=== PATIENT | male | born 1990 | race African-American/Black ===

== ENCOUNTER 2019-11-05 23:01 | Emergency (ER) | payer SELFPAY ==
[~2019-11-05] VITALS: Ht 180.3 cm; Wt 70.5 kg
--- NOTE | 2019-11-05 23:28 | PHYS DOC ---
Past Medical History Past Medical History: No Pertinent History Past Surgical History: No Surgical History Smoking Status: Current Every Day Smoker Alcohol Use: Rarely Drug Use: Marijuana General Adult EDM: Chief Complaint: SHORTNESS OF BREATH HPI: HPI: Patient is a 29 year old male who presents for evaluation of left-sided chest pain and shortness of air. Patient has been having progressive symptoms over the past 3 days. Patient denies any cough or congestion. Symptoms worse with taking deep breaths and worse when lying on the left side. Patient denies any known exposure to COVID or any person with that condition. Patient vital signs are otherwise stable. Patient is not toxic appearing Review of Systems: Review of Systems: Constitutional: Denies fever or chills. [] Eyes: Denies change in visual acuity. [] HENT: Denies nasal congestion or sore throat. [] Respiratory: Denies cough but has shortness of breath. [] Cardiovascular: has chest pain but no edema. [] GI: Denies abdominal pain, nausea, vomiting, bloody stools or diarrhea. [] : Denies dysuria. [] Musculoskeletal: Denies back pain or joint pain. [] Integument: Denies rash. [] Neurologic: Denies headache, focal weakness or sensory changes. [] Endocrine: Denies polyuria or polydipsia. [] Lymphatic: Denies swollen glands. [] Psychiatric: Denies depression or anxiety. [] Heart Score: Risk Factors: Risk Factors: DM, Current or recent (<one month) smoker, HTN, HLP, family history of CAD, obesity. Risk Scores: Score 0 - 3: 2.5% MACE over next 6 weeks - Discharge Home Score 4 - 6: 20.3% MACE over next 6 weeks - Admit for Clinical Observation Score 7 - 10: 72.7% MACE over next 6 weeks - Early Invasive Strategies Physical Exam: PE: Constitutional: Well developed, well nourished, mild acute distress, non-toxic appearance. [] HENT: Normocephalic, atraumatic, bilateral external ears normal, oropharynx mois t, no oral exudates, nose normal. [] Eyes: PERRL, EOMI, conjunctiva normal, no discharge. [] Neck: Normal range of motion, no tenderness, supple, no stridor. [] Cardiovascular:Heart rate regular rhythm, no murmur [] Lungs & Thorax: Bilateral breath sounds clear to auscultation, tender left chest wall [] Abdomen: Bowel sounds normal, soft, no tenderness, no masses, no pulsatile masses. [] Skin: Warm, dry, no erythema, no rash. [] Back: No tenderness, no CVA tenderness. [] Extremities: No tenderness, no cyanosis, ROM intact, no edema. [] Neurologic: Alert and oriented X 3, normal motor function, normal sensory function, no focal deficits noted. [] Psychologic: Affect normal, judgement normal, mood normal. [] Current Patient Data: Labs: Laboratory Tests Test 11/05/19 23:45 White Blood Count 6.9 x10^3/uL Red Blood Count 4.30 x10^6/uL Hemoglobin 14.1 g/dL Hematocrit 40.1 % Mean Corpuscular Volume 93 fL Mean Corpuscular Hemoglobin 33 pg Mean Corpuscular Hemoglobin Concent 35 g/dL Red Cell Distribution Width 12.4 % Platelet Count 275 x10^3/uL Neutrophils (%) (Auto) 66 % Lymphocytes (%) (Auto) 25 % Monocytes (%) (Auto) 6 % Eosinophils (%) (Auto) 3 % Basophils (%) (Auto) 1 % Neutrophils # (Auto) 4.5 x10^3/uL Lymphocytes # (Auto) 1.7 x10^3/uL Monocytes # (Auto) 0.4 x10^3/uL Eosinophils # (Auto) 0.2 x10^3/uL Basophils # (Auto) 0.0 x10^3/uL D-Dimer (Geraldine) 5.10 ug/mlFEU Sodium Level 139 mmol/L Potassium Level 3.8 mmol/L Chloride Level 101 mmol/L Carbon Dioxide Level 29 mmol/L Anion Gap 9 Blood Urea Nitrogen 8 mg/dL Creatinine 0.9 mg/dL Estimated GFR (Cockcroft-Gault) 120.7 BUN/Creatinine Ratio 9 Glucose Level 105 mg/dL Calcium Level 7.9 mg/dL Total Bilirubin 0.4 mg/dL Aspartate Amino Transf (AST/SGOT) 16 U/L Alanine Aminotransferase (ALT/SGPT) 15 U/L Alkaline Phosphatase 103 U/L Troponin I Quantitative < 0.017 ng/mL Total Protein 7.1 g/dL Albumin 3.0 g/dL Albumin/Globulin Ratio 0.7 Lipase 82 U/L Current Medications Medications (Trade) Dose Ordered Sig/Selena Route PRN Reason Start Time Stop Time Status Last Admin Dose Admin Sodium Chloride 1,000 ml @ 100 mls/hr Q10H IV 11/05/19 23:29 11/06/19 09:28 UNV 11/05/19 23:57 EKG: EKG: EKG showed normal sinus rhythm rate 85, nonspecific ST segment changes, incomplete right bundle branch block, left ventricular hypertrophy, not STEMI [] Radiology/Procedures: Radiology/Procedures: [facility] [address] [place] [address] IMAGING REPORT Signed PATIENT: JAYDA MENJIVAR PACCOUNT: [id number] : 1990 LOCATION: ER AGE: 29 SEX: M EXAM STATUS: REG ER ORD. PHYSICIAN: ALFRED HESS DO REASON: chest pain PROCEDURE: PORTABLE CHEST 1V AP portable chest radiograph 11/05/2019 Clinical History: Chest pain. An AP erect portable digital radiograph of the chest was obtained. No previous studies are available for comparison. The cardiac and mediastinal silhouettes are within normal limits in size and configuration. No acute pulmonary infiltrate is seen. No pneumothorax or definite pleural effusion is noted. Very mild S-shaped curvature of the thoracolumbar spine is seen. IMPRESSION: No acute abnormality is seen. Electronically signed by: Hubert Grullon MD (11/06/2019 12:21 AM) [id number] DICTATED and SIGNED BY: HUBERT GRULLON MD DATE: 11/06/19 0021 [] Impression: [facility] [address] [place], [place] [id number] IMAGING REPORT Signed PATIENT: JAYDA MENJIVAR PACCOUNT: [id number] : 1990 LOCATION: ER AGE: 29 SEX: M EXAM STATUS: REG ER ORD. PHYSICIAN: ALFRED HESS DO REASON: chest pain PROCEDURE: CT ANGIOGRAPHY CHEST CTA scan of the Chest with Contrast (Pulmonary Embolism protocol) 11/06/2019 Clinical History: Chest pain Technique: After the intravenous administration of 100 cc of Omnipaque 350, contiguous, 0.625 mm axial sections were obtained through the chest. 2 mm axial and 3D MIP coronal and sagittal reconstructed images were obtained. One or more of the following individualized dose reduction techniques were utilized for this study: 1. Automated exposure control. 2. Adjustment of the mA and/or kV according to patient size. 3. Use of iterative reconstruction technique. Findings: No filling defect is seen within the major branches of either pulmonary artery. There is no CT evidence of pulmonary embolism. The thoracic aorta tapers normally. The heart is borderline enlarged. There are very small bilateral pleural effusions, left greater than right. Dependent segmental atelectasis is seen involving both lower lobes. No area of consolidation is seen. No pneumothorax is noted. Impression: There is no CT evidence of pulmonary embolism. Electronically signed by: Hubert Grullon MD (11/06/2019 2:03 AM) [id number] DICTATED and SIGNED BY: HUBERT GRULLON MD DATE: 11/06/19 0203 Course & Med Decision Making: Course & Med Decision Making Pertinent Labs and Imaging studies reviewed. (See chart for details) [] Dragon Disclaimer: Dragon Disclaimer: This electronic medical record was generated, in whole or in part, using a voice recognition dictation system. 0010 patient refused the COVID nasal swab, states he did not want that swab of his nose. He was advised that refusing the swab could result in failure to diagnose an emergency condition such as COVID-19. He will be advised to go home and quarantine for the next 14 days Departure Departure Impression: Primary Impression: Left-sided chest wall pain Disposition: HOME, SELF-CARE Condition: STABLE Referrals: ALANNA ROSS MD Patient Instructions: Costochondritis, [id number] Additional Instructions: Take medication as directed, we could not exclude COVID as being the cause of your pain You have been tested for or diagnosed with COVID-19. It is an in fection caused by a new type of coronavirus. COVID-19 will cause cold-like or mild flu symptoms in most. It can cause more severe symptoms like problems breathing in some. There is no treatment for COVID-19. The body will clear the infection over time. Self-care will help to ease discomfort. Steps to Take: Self-Care Rest as needed. Healthy habits may help you feel better. Steps include: Choose healthy foods including fruits and vegetables. Drink water throughout the day. Get plenty of sleep each night. If you smoke, try to quit. It may ease breathing. Avoid alcohol. Keep Others Healthy The virus can spread to others. Droplets are released every time you sneeze or cough. The droplets can get into the mouth, nose, or eyes of people near you and lead to infection. To lower the chances of spreading COVID-19 to others: Stay at home until your doctor has said it is safe to leave. If you tested positive this will mean staying isolated until both of the following are true: At least 7 days have passed since the start of illness. You are free of fever for at least 72 hours without the use of medicine. During this time: - Avoid public areas, events, or transportation. Do not return to work or school until your doctor has said it is safe to do so. - Call ahead if you need to go to a medical center. Let them know you may have COVID-19. It will help them guide you where to go. They may also ask you to wear a facemask when you come to the office. - If you call for emergency medical services, let them know you may have COVID- 19. While at home: - Try to avoid close contact with others. Stay about 6 feet away. - If possible, spend most of your time in a separate room from others. - Use a face mask if you will be in close contact with others such as sharing a room or vehicle. - Have someone wipe down common surfaces in the home. Use household life support technician every day on areas like doorknobs, counters, or sinks. - Cough or sneeze into a tissue. Throw the tissue away right after use. If a tissue is not available, cough or sneeze into your elbow. - Wash your hands often. Wash them after sneezing or coughing. Use soap and water and wash for at least 20 seconds. Alcohol based hand truck car and bus cleaner can be used if soap and water is not available. - Do not prepare food for others. Avoid sharing personal items like forks, spoons, or toothbrushes. - Avoid close contact with pets while you are sick. There is no evidence of the virus passing to pets. This is a safety step until more is known about this virus. Isolation can be frustrating. Social interaction can help. Keep in touch with friends and family through phone and tech options. You can still interact with others in your home, just keep a safe distance of about 6 feet. Follow-up: Your doctors office will check in with you to see if there are any changes in your health. You may be asked to keep track of symptoms to share with them. They will also let you know when you are clear to be in public again. Problems to Look Out For: Contact your doctor if your recovery is not going as you expect. Get emergency care if you have problems such as: - Trouble breathing - Nonstop chest pain or pressure - Changes in awareness, confusion, or problems waking - Lips or face have bluish color - Worsening of symptoms If you think you have an emergency, call for emergency medical services right away. As taken from [email or web address] since the swab was refused. We will give you COVID follow-up instructions just in case Scripts Methylprednisolone (MEDROL) 4 Mg Tab.ds.pk 1 PKG PO UD for inflammation, #1 PKG Prov: ALFRED HESS DO 11/06/19 Justicifation of Admission Dx: Justifications for Admission: Justification of Admission Dx: N/A ALFRED HESS DO Nov 05, 2019 23:28
[2019-11-05] MEDS ORDERED: IV NORMAL SALINE 1000ML BAG 1,000 ML IV SCH (23:29)
[2019-11-06] LABS: BASO % 1 % (0-3); EOS # 0.2 x10^3/uL (0.0-0.7); EOS % 3 % (0-3); HEMATOCRIT 40.1 % (39.0-53.0); HEMOGLOBIN 14.1 g/dL (13.0-17.5); LYMPH # 1.7 x10^3/uL (1.0-4.8); LYMPH % 25 % (24-48); MEAN CORPUSCULAR HEMOGLOBIN 33 pg (25-35); MEAN CORPUSCULAR HGB CONC 35 g/dL (31-37); MEAN CORPUSCULAR VOLUME 93 fL (79-100); MONO # 0.4 x10^3/uL (0.0-1.1); MONO % 6 % (0-9); NEUT # 4.5 x10^3/uL (1.8-7.7); NEUT % 66 % (31-73); PLATELET COUNT 275 x10^3/uL (140-400); RED CELL DISTRIBUTION WIDTH 12.4 % (11.5-14.5); WHITE BLOOD COUNT 6.9 x10^3/uL (4.0-11.0)
[2019-11-06 00:07] LABS: CALCIUM 7.9 mg/dL (8.5-10.1); CREATININE 0.9 mg/dL (0.7-1.3); GFR 120.7; POTASSIUM 3.8 mmol/L (3.5-5.1)
[2019-11-06 00:15] LABS: ALBUMIN/GLOBULIN RATIO 0.7 (1.0-1.7); TOTAL BILIRUBIN 0.4 mg/dL (0.2-1.0); TOTAL PROTEIN 7.1 g/dL (6.4-8.2)
--- NOTE | 2019-11-06 00:25 | RAD ---
AP portable chest radiograph 11/05/2019 Clinical History: Chest pain. An AP erect portable digital radiograph of the chest was obtained. No previous studies are available for comparison. The cardiac and mediastinal silhouettes are within normal limits in size and configuration. No acute pulmonary infiltrate is seen. No pneumothorax or definite pleural effusion is noted. Very mild S-shaped curvature of the thoracolumbar spine is seen. IMPRESSION: No acute abnormality is seen. Electronically signed by: Hubert Grullon MD (11/06/2019 12:21 AM) [id number]
[2019-11-06] MEDS ORDERED: CONTRAST GIVEN. MC PRN (01:00)
[2019-11-06] MEDS ORDERED: IOHEXOL 350 MG/ML 100 ML VIAL. IV ONE (01:30)
[2019-11-06 01:44] VITALS: BP 123/79
--- NOTE | 2019-11-06 02:06 | RAD ---
CTA scan of the Chest with Contrast (Pulmonary Embolism protocol) 11/06/2019 Clinical History: Chest pain Technique: After the intravenous administration of 100 cc of Omnipaque 350, contiguous, 0.625 mm axial sections were obtained through the chest. 2 mm axial and 3D MIP coronal and sagittal reconstructed images were obtained. One or more of the following individualized dose reduction techniques were utilized for this study: 1. Automated exposure control. 2. Adjustment of the mA and/or kV according to patient size. 3. Use of iterative reconstruction technique. Findings: No filling defect is seen within the major branches of either pulmonary artery. There is no CT evidence of pulmonary embolism. The thoracic aorta tapers normally. The heart is borderline enlarged. There are very small bilateral pleural effusions, left greater than right. Dependent segmental atelectasis is seen involving both lower lobes. No area of consolidation is seen. No pneumothorax is noted. Impression: There is no CT evidence of pulmonary embolism. Electronically signed by: Hubert Grullon MD (11/06/2019 2:03 AM) [id number]
[2019-11-06] MEDS ORDERED: METH4TAB2 PO (02:21)
[2019-11-06] MEDS ORDERED: methylPREDNISolone SOD SUCC PF 125 MG/2 ML VIAL. IV ONE (02:45)
--- NOTE | 2019-11-06 06:17 | EKG ---
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
== END 2019-11-06 02:30 | disposition home or self-care (01) ==
LOC: ER 23:01
DX: R07.89 Other chest pain (principal); R06.02 Shortness of breath; F17.200 Nicotine dependence, unspecified, uncomplicated; F12.90 Cannabis use, unspecified, uncomplicated
CPT/HCPCS: 36415; 71045; 71275; 80053; 83690; 84484; 85025; 85379; 93005; 99285; J7030; Q9967

== ENCOUNTER → 2020-04-13 | Outpatient (CLI) | payer SELFPAY ==
[2020-02-05 16:45] VITALS: BP 94/50
[~2020-04-13] MED LIST: AMOX1TAB11 PO; AZIT250T6 PO; METH4TAB2 PO
[2020-04-13 13:10] LABS: BASO % 0 % (0-3); EOS # 0.1 x10^3/uL (0.0-0.7); EOS % 1 % (0-3); HEMATOCRIT 23.8 % (39.0-53.0); HEMOGLOBIN 7.7 g/dL (13.0-17.5); LYMPH # 0.6 x10^3/uL (1.0-4.8); LYMPH % 12 % (24-48); MEAN CORPUSCULAR HEMOGLOBIN 25 pg (25-35); MEAN CORPUSCULAR HGB CONC 33 g/dL (31-37); MEAN CORPUSCULAR VOLUME 77 fL (79-100); MONO # 0.1 x10^3/uL (0.0-1.1); MONO % 2 % (0-9); NEUT # 4.5 x10^3/uL (1.8-7.7); NEUT % 84 % (31-73); PLATELET COUNT 397 x10^3/uL (140-400); RED BLOOD COUNT 3.07 x10^6/uL (4.30-5.70); RED CELL DISTRIBUTION WIDTH 21.6 % (11.5-14.5); WHITE BLOOD COUNT 5.3 x10^3/uL (4.0-11.0)
[2020-04-15 16:11] LABS: HGB ELECROPHORESIS COMMENT Note: (.)
== END ==
LOC: ONCLAB 13:00
PROVIDERS: ATTEND Internal Medicine Hematology & Oncology
DX: D64.9 Anemia, unspecified (principal)
CPT/HCPCS: 36415; 83020; 85025

== ENCOUNTER → 2020-04-21 | Outpatient (CLI) | payer SELFPAY ==
[2020-02-05 16:45] VITALS: BP 94/50
== END ==
LOC: SPEC 14:06
PROVIDERS: ATTEND Internal Medicine Hematology & Oncology
DX: D64.9 Anemia, unspecified (principal); Z53.8 Procedure and treatment not carried out for other reasons
CPT/HCPCS: 36415

== ENCOUNTER → 2020-05-12 | Outpatient (CLI) | payer SELFPAY ==
[2020-02-05 16:45] VITALS: BP 94/50
[2020-05-12 14:29] LABS: BASO % 0 % (0-3); EOS # 0.1 x10^3/uL (0.0-0.7); EOS % 2 % (0-3); HEMATOCRIT 24.6 % (39.0-53.0); HEMOGLOBIN 7.7 g/dL (13.0-17.5); LYMPH # 0.7 x10^3/uL (1.0-4.8); LYMPH % 17 % (24-48); MEAN CORPUSCULAR HEMOGLOBIN 23 pg (25-35); MEAN CORPUSCULAR HGB CONC 32 g/dL (31-37); MEAN CORPUSCULAR VOLUME 72 fL (79-100); MONO # 0.1 x10^3/uL (0.0-1.1); MONO % 3 % (0-9); NEUT # 3.1 x10^3/uL (1.8-7.7); NEUT % 78 % (31-73); PLATELET COUNT 432 x10^3/uL (140-400); RED CELL DISTRIBUTION WIDTH 21.3 % (11.5-14.5); WHITE BLOOD COUNT 3.9 x10^3/uL (4.0-11.0)
[2020-05-12 15:15] LABS: ANISOCYTOSIS MOD; HYPOCHROMIA MOD; MICROCYTOSIS MOD; PLT ESTIMATE INCREASED (ADEQUATE); POLYCHROMASIA SLIGHT
[2020-05-12 15:16] LABS: OVALOCYTES FEW; SCHISTOCYTES OCC
[2020-05-12 15:17] LABS: TOXIC GRANULATION SLIGHT
== END ==
LOC: ONCLAB 13:37
PROVIDERS: ATTEND Internal Medicine Hematology & Oncology
DX: D64.9 Anemia, unspecified (principal)
CPT/HCPCS: 83655; 85025